=== PATIENT | female | born 1990 | race Caucasian/White ===

== ENCOUNTER 2019-04-12 07:12 | Day surgery (SDC) | payer OTHER ==
[2019-04-12] MEDS ORDERED: Propofol 200 MG/20 ML SDV IV ONE (07:13)
[2019-04-12] MEDS ORDERED: Lidocaine 2% 5 ML SDV INJECT ONE (07:13)
[2019-04-12] MEDS ORDERED: Lactated Ringers 1,000 ML IV SCH (07:15)
[2019-04-12] MEDS ORDERED: Sodium Chloride 0.9% 10 ML Syringe FLUSH PRN (07:15)
--- NOTE | 2019-04-12 08:19 | PREOP ---
ADMISSION DATE: 04/12/2019 CHIEF COMPLAINT: History of colon polyp. HISTORY OF PRESENT ILLNESS: A 28-year-old white female, had a scope 5 years ago for some GI complaints, was found to have a tubular adenoma of the descending colon. Repeat colonoscopy was recommended at this time. There are no GI complaints. Dad has a history of colon polyps and she does have a family history of ulcerative colitis. PAST MEDICAL HISTORY: Significant for dysplasia of the cervix grade 1. PAST SURGICAL HISTORY: Significant for colonoscopy, colposcopy, skin biopsy , and upper endoscopy. MEDICATIONS: Ortho Tri-Cyclen 1 tablet per day. ALLERGIES: She has an allergy to amoxicillin. REVIEW OF SYSTEMS: The patient denies any HEENT, cardiovascular, respiratory, GI, or neurologic complaints. PHYSICAL EXAMINATION: GENERAL: This is a well-developed, well-nourished female, appearing in no acute distress. HEENT: Grossly within normal limits. LUNGS: Clear to auscultation. HEART: Had a regular rate and rhythm. ABDOMEN: Soft, nontender. ASSESSMENT: Personal history of colon polyps. PLAN: Colonoscopy. Procedure and risks explained to the patient to include bleeding, perforation, and infection. The patient expresses understanding. She asked us to proceed. /[id number] KATY/VA
--- NOTE | 2019-04-12 08:52 | PCM.OPNOTE ---
- General Post-Op/Procedure Note Date of Surgery/Procedure: 04/12/19 Operative Procedure(s): c scope Findings: nl exam Pre Op Diagnosis: hx of colon polyps Post-Op Diagnosis: nl exam Anesthesia Technique: MAC Primary Surgeon: Rajeev Sun Anesthesia Provider: Kayli Perkins Pathology: none Complications: None Condition: Good Free Text/Narrative:: see dictation repeat in 10 yrs
--- NOTE | 2019-04-12 11:31 | OR ---
DATE OF OPERATION: 04/12/2019 SURGEON: Rajeev Sun MD PROCEDURE PERFORMED: Colonoscopy. PREOPERATIVE DIAGNOSIS: Personal history of colon polyps. POSTOPERATIVE DIAGNOSIS: Normal exam. INDICATIONS FOR PROCEDURE: This is a 28-year-old white female who 5 years ago had a colonoscopy, a small adenoma was removed from the descending colon. She presents now for followup scope. DESCRIPTION OF OPERATION: After an excellent IV sedation was administered, digital rectal exam was performed. No marked abnormality was noted. The flexible colonoscope was inserted and advanced to the cecum. The prep was excellent. Following findings were noted. Ascending colon, unremarkable. Transverse colon, unremarkable. Descending colon, unremarkable. Rectum and anus, unremarkable. Colon was deflated as the scope was removed. Patient tolerated the procedure well. RECOMMENDATIONS: Repeat colonoscopy in 10 years. /[id number] /MODL
== END 2019-04-12 09:22 | disposition home or self-care (01) ==
LOC: FB.SDS 07:12
PROVIDERS: ATTEND Surgery
DX: Z12.11 Encounter for screening for malignant neoplasm of colon (principal); Z88.0 Allergy status to penicillin; Z86.010 Personal history of colon polyps; Z83.71 Family history of colonic polyps; Z83.79 Family history of other diseases of the digestive system; Z79.3 Long term (current) use of hormonal contraceptives; Z79.899 Other long term (current) drug therapy
CPT/HCPCS: 45378; 81025; J2001; J2704; J7120